=== PATIENT | male | born 1980 | race Caucasian/White ===

== ENCOUNTER 2017-02-01 16:30 | Emergency (ER) | payer OTHER ==
[~2017-02-01] VITALS: Ht 180.3 cm; Wt 89.4 kg
--- NOTE | 2017-02-01 16:30 | NUR ---
PT PLACED IN BED 7, REPORT ENDORSED TO VINI MENEZES
[2017-02-01 16:31] VITALS: BP_SYST 128
--- NOTE | 2017-02-01 16:35 | NUR ---
Pt ambulated into ED c/o productive cough x4 days with green discharge. Pt's cheif complaint is hoarseness of voice. Pt was speaking clearly in the morning, but lost his voice throughout the day. Pt c/o pain 2/10 to throat. No other complaints/injuries noted/per pt.
[2017-02-01] MEDS ORDERED: DEXAMETHASONE SOD PHOSPHATE 10 MG/ML VIAL IM ONE (16:45)
--- NOTE | 2017-02-01 16:45 | NUR ---
Medication administered. Pt tolerated well. No adverse reactions noted.
--- NOTE | 2017-02-01 16:46 | NUR ---
ER LUCIO HE at bedside examining patient.
--- NOTE | 2017-02-01 17:11 | NUR ---
Patient given written and verbal discharge instructions and verbalizes understanding. ER MD discussed with patient the results and treatment provided. Patient in stable condition. ID arm band removed.Rx of AUGMENTIN, TESSALON PERLES, MOTRIN, PREDNISONE given. Patient educated on pain management and to follow up with PMD. Pain Scale 1. [employer] NERI AWARE. Opportunity for questions provided and answered.
[2017-02-01 17:13] VITALS: BP_SYST 126
== END 2017-02-01 17:11 | disposition home or self-care (01) ==
LOC: SED 16:30
DX: J01.00 Acute maxillary sinusitis, unspecified (principal); J04.0 Acute laryngitis; R03.0 Elevated blood-pressure reading, without diagnosis of hypertension
CPT/HCPCS: 36415; 86403; 87081; 96372; 99284; J1100